=== PATIENT | female | born 1965 | race African-American/Black ===

== ENCOUNTER 2018-09-27 03:07 | Emergency (ER) | payer OTHER ==
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
[2018-09-27] MEDS ORDERED: AMOX TR/POT CLAV 875MG/125MG TABLETS (FP) PO ONE (03:46)
[2018-09-27] MEDS ORDERED: AMOX TR/POT CLAV 875MG/125MG TABLETS (FP) ONE (03:51)
[2018-09-27 04:11] VITALS: BP 138/90; PULSE 66; TEMP 97.7; BMI 28.0
== END 2018-09-27 03:58 | disposition home or self-care (01) ==
LOC: JER 03:07
DX: S21.251A Open bite of right back wall of thorax without penetration into thoracic cavity, initial encounter (principal); W50.3XXA Accidental bite by another person, initial encounter; Y93.F9 Activity, other caregiving; Y92.89 Other specified places as the place of occurrence of the external cause
CPT/HCPCS: 99281-25

== ENCOUNTER → 2023-01-16 | Day surgery (SDC) | payer OTHER | END | disposition home or self-care (01) | LOC: JRADIR 09:44 | PROVIDERS: ATTEND Internal Medicine Endocrinology, Diabetes & Metabolism | PROC: 0G9H3ZX Drainage of Right Thyroid Gland Lobe, Percutaneous Approach, Diagnostic (ICD-10-PCS; principal; 2023-01-16) | DX: E04.1 Nontoxic single thyroid nodule (principal) | CPT/HCPCS: 10005; 76942; 88173; 88305-TC ==

== ENCOUNTER 2025-01-19 06:20 | Day surgery (SDC) | payer OTHER ==
[2025-01-17 15:44] VITALS: BMI 34.1
[2025-01-19 12:00] VITALS: RESP 18
[2025-01-19] MEDS ORDERED: MIDAZOLAM HCL 2 MG/2 ML SINGLE DOSE VIAL ONE (13:26)
[2025-01-19] MEDS ORDERED: LIDOCAINE HCL/PF 2% SDV 5ML VIAL ONE (13:26)
[2025-01-19] MEDS ORDERED: PROPOFOL 20 ML ONE (13:26)
[2025-01-19] MEDS ORDERED: DEXAMETHASONE SOD PHOSPHATE 4 MG/1 ML VIAL ONE (14:09)
[2025-01-19] MEDS ORDERED: KETOROLAC TROMETHAMINE 30 MG/1 ML VIAL ONE (14:44)
[2025-01-19] MEDS ORDERED: ONDANSETRON 4 MG/2 ML VIAL ONE (14:44)
[2025-01-19] MEDS ORDERED: ONDANSETRON 4 MG/2 ML VIAL IVPUSH PRN (15:05)
[2025-01-19] MEDS ORDERED: PROMETHAZINE HCL 25 MG/1 ML VIAL IVPB PRN (15:05)
[2025-01-19] MEDS ORDERED: LACTATED RINGERS SOLUTION 1,000 ML IV SCH (15:15)
[2025-01-19] MEDS: ACETAMINOPHEN 1000 MG/100 ML BAG IVPB ONE (15:18)
[2025-01-19] MEDS: ACETAMINOPHEN INJECTION 100 ML ONE (15:18)
[2025-01-19 16:23] VITALS: TEMP 97.6
[2025-01-19 17:43] VITALS: BP 132/82; PULSE 65
== END 2025-01-19 17:40 | disposition home or self-care (01) ==
LOC: JASU-SURG 06:20
PROVIDERS: ATTEND Obstetrics & Gynecology
PROC: 0UJD8ZZ Inspection of Uterus and Cervix, Via Natural or Artificial Opening Endoscopic (ICD-10-PCS; principal; 2025-01-19 13:45)
DX: N88.2 Stricture and stenosis of cervix uteri (principal)
CPT/HCPCS: 88305-TC; 94760